=== PATIENT | female | born 1945 | race Caucasian/White ===

== ENCOUNTER 2016-12-27 13:28 | Emergency (ER) | payer MEDICAID, OTHER ==
[2016-12-27 13:40] VITALS: BP 144/72; RESP 18; TEMP 98
[2016-12-27] MEDS ORDERED: IPRATROPIUM/ALBUTEROL 3 ML DEYVIAL IH ONE (14:02)
[2016-12-27] MEDS ORDERED: DEXAMETHASONE 4 MG TAB PO ONE (14:02)
--- NOTE | 2016-12-27 14:06 | EDPHY ---
H & P Stated Complaint: c/o 5 wk of coughing- worse @ night- can"t sleep Time Seen by Provider: 12/27/16 13:57 HPI/ROS: CHIEF COMPLAINT: Coughing HISTORY OF PRESENT ILLNESS: Patient is a 71-year-old female with history of COPD and chronic bronchitis comes to the emergency department requesting a Z- Anibal. She states that her cough has been worse for the last few days. She has not had a fever. She has been using her inhaler more frequently. She has not had any shortness of breath. She denies chest pain. REVIEW OF SYSTEMS: Constitutional: denies: chills, fever, recent illness, recent injury EENTM: denies: blurred vision, double vision, nose congestion Respiratory: See HPI Cardiac: denies: chest pain, irregular heart rate, lightheadedness, palpitations Gastrointestinal/Abdominal: denies: abdominal pain, diarrhea, nausea, vomiting, blood streaked stools Genitourinary: denies: dysuria, frequency, hematuria, pain Musculoskeletal: denies: joint pain, muscle pain Skin: denies: lesions, rash, jaundice, bruising Neurological: denies: headache, numbness, paresthesia, tingling, dizziness, weakness Hematologic/Lymphatic: denies: blood clots, easy bleeding, easy bruising Immunologic/allergic: denies: HIV/AIDS, transplant EXAM: GENERAL: Well-appearing, well-nourished and in no acute distress. HEAD: Atraumatic, normocephalic. EYES: Pupils equal round and reactive to light, extraocular movements intact, sclera anicteric, conjunctiva are normal. ENT: TMs normal, nares patent, oropharynx clear without exudates. Moist mucous membranes. NECK: Normal range of motion, supple without lymphadenopathy or JVD. LUNGS: Bilateral wheezes, mild rhonchi HEART: Regular rate and rhythm without murmurs, rubs or gallops. ABDOMEN: Soft, nontender, normoactive bowel sounds. No guarding, no rebound. No masses appreciated. BACK: No CVA tenderness, no spinal tenderness, step-offs or deformities EXTREMITIES: Normal range of motion, no pitting or edema. No clubbing or cyanosis. NEUROLOGICAL: Cranial nerves II through XII grossly intact. Normal speech, normal gait. 5/5 strength, normal movement in all extremities, normal sensation PSYCH: Normal mood, normal affect. SKIN: Warm, dry, normal turgor, no visible rashes or lesions. Source: Patient Exam Limitations: No limitations - Personal History Current Tetanus Diphtheria and Acellular Pertussis (TDAP): Yes - Medical/Surgical History Hx Asthma: No Hx Chronic Respiratory Disease: No Hx Diabetes: No Hx Cardiac Disease: No Hx Renal Disease: No Hx Cirrhosis: No Hx Alcoholism: No Hx HIV/AIDS: No Hx Splenectomy or Spleen Trauma: No Other PMH: HYPOTHRYOIDISM , COPD - Family History Significant Family History: No pertinent family hx - Social History Smoking Status: Former smoker Alcohol Use: Sober Drug Use: None Constitutional: Initial Vital Signs Temperature (C) 36.6 C 12/27/16 13:38 Heart Rate 78 12/27/16 13:38 Respiratory Rate 18 12/27/16 13:38 Blood Pressure 144/72 H 12/27/16 13:38 O2 Sat (%) 97 12/27/16 13:38 O2 Delivery Mode Room Air Allergies/Adverse Reactions: Sulfa (Sulfonamide Antibiotics) Allergy (Verified 07/30/13 17:13) Home Medications: Medication Instructions Recorded Hydrocod/APAP 5/325 Prepack#6 1 tab TAKEHOME ONCE PRN #0 btl 07/30/13 [Lortab 5 mg Prepack#6] Levothyroxine 07/30/13 Azithromycin [Zithromax] 250 mg PO DAILY #6 tab 12/27/16 Medical Decision Making - Diagnostics Imaging: Discussed imaging studies w/ call center receptionist Radiologist ED Course/Re-evaluation: The patient is here requesting a Z-Anibal. She is wheezing on exam. She also agree to a DuoNeb and steroids. She would not like to take the steroids long- term because she does not think that they worked well. She is flying in 2 days and would like to start antibiotics. She declines work or imaging. I agreed with this plan. We discussed indications for returning. Differential Diagnosis: Partial list of the Differential diagnosis considered include but were not limited to; bronchitis, pneumonia, COPD exacerbation and although unlikely based on the history and physical exam, I also considered CHF, arrhythmia, acute coronary disease, pneumothorax . I discussed these differential diagnoses and the plan with the patient as well as the usual and expected course. The patient understands that the diagnosis is provisional and that in medicine we are not always correct and that further workup is often warranted. Usual and customary warnings were given. All of the patient's questions were answered. The patient was instructed to return to the emergency department should the symptoms at all worsen or return, otherwise to followup with the physician as we discussed. - Data Points Medications Given: Discontinued Medications Albuterol/Ipratropium (Duoneb) 3 ml IH EDNOW ONE Stop: 12/27/16 14:03 Last Admin: 12/27/16 14:18 Dose: 3 ml Dexamethasone (Decadron) 10 mg PO EDNOW ONE Stop: 12/27/16 14:03 Last Admin: 12/27/16 14:08 Dose: 10 mg Departure - Departure Disposition: Home, Routine, Self-Care Clinical Impression: Chronic obstructive pulmonary disease with acute exacerbation Acute bronchitis Qualifiers: Bronchitis organism: unspecified organism Qualified Code(s): J20.9 - Acute bronchitis, unspecified Condition: Fair Instructions: Acute Bronchitis (ED), COPD (Chronic Obstructive Pulmonary Disease) (ED) Additional Instructions: You have a small mass seen on the x-ray in the right perihilar region. We recommend follow-up with CT scan with contrast in the next 2-3 months to rule out granuloma versus cancer etc. Referrals: Doctor Not,On Staff, MD [Primary Care Provider] - As per Instructions Prescriptions: Azithromycin [Zithromax] 250 mg PO DAILY #6 tab
[2016-12-27 16:07] VITALS: PULSE 87; O2SAT 91
== END 2016-12-27 14:42 | disposition home or self-care (01) ==
LOC: CED 13:28
DX: J44.1 Chronic obstructive pulmonary disease with (acute) exacerbation (principal); J20.9 Acute bronchitis, unspecified; Z87.891 Personal history of nicotine dependence
CPT/HCPCS: 71020-PO